=== PATIENT | female | born 1995 | race Caucasian/White ===

== ENCOUNTER 2016-08-14 18:29 | Emergency (ER) | payer MEDICAID ==
[2015-08-07 15:29] VITALS: BMI 35.3
[~2016-08-14 18:29] MED LIST: HYDROCODON-ACE1 EAC7 PO; IBUPROFEN600 MG PO
[2016-08-14 19:12] LABS: BASOPHILS 0.2 % (0.0-2.0); EOSINOPHILS 2.6 % (0-7); HEMATOCRIT 33.8 % (36.0-48.0); HEMOGLOBIN 10.7 g/dL (12-16); IMMATURE GRANULOCYTES 0.2 % (0-5); MCH 23.1 pg (26.0-34.0); MCHC 31.7 g/dL (31.0-37.0); MCV 72.8 fL (80.0-100.0); MEAN PLATELET VOLUME 9.6 fL (7.4-10.4); PLATELET COUNT 222 10x3/uL (130-400); RBC 4.64 10x6/uL (4.00-5.40); RDW 16.4 % (11.5-14.5); WBC 6.2 10x3/uL (4.8-10.8)
[2016-08-14 19:18] LABS: APPEARANCE CLEAR (CLEAR); BILIRUBIN NEGATIVE (NEGATIVE); COLOR YELLOW (YELLOW); EPITHELIAL CELLS 0-5 /hpf (0-5); GLUCOSE NEGATIVE (NEGATIVE); KETONE NEGATIVE (NEGATIVE); LEUKOCYTE ESTERASE TRACE (NEGATIVE); NITRITE NEGATIVE (NEGATIVE); PROTEIN NEGATIVE (NEGATIVE); RED CELLS - URINE 0-5 /hpf (0-5); UROBILINOGEN NORMAL (NORMAL); WHITE CELLS - URINE 25-50 /hpf (0-5)
[2016-08-14 19:19] LABS: BACTERIA MODERATE /hpf (NONE SEEN)
[2016-08-14 19:29] LABS: ALBUMIN 3.7 g/dL (3.4-5.0); ALKALINE PHOSPHATASE 63 U/L (46-116); ALT (SGPT) 22 U/L (10-68); BILIRUBIN - TOTAL 0.32 mg/dL (0.2-1.3); CALC OSMOLALITY 280 mosm/kg (275-300); CALCIUM 8.9 mg/dL (8.5-10.1); CARBON DIOXIDE 28.3 mmol/L (21.0-32.0); CHLORIDE - SERUM 107 mmol/L (98-107); CREATININE - SERUM 0.9 mg/dL (0.6-1.3); GLUCOSE 87 mg/dL (74-106); POTASSIUM - SERUM 3.9 mmol/L (3.5-5.1); PROTEIN - SERUM 7.4 g/dL (6.4-8.2); SODIUM 141 mmol/L (136-145); UREA NITROGEN 15 mg/dL (7-18); eGFR NON AFRICAN AMERICAN 85 mL/min (90-120)
[2016-08-14 19:33] LABS: HCG SERUM NEGATIVE (NEGATIVE)
== END 2016-08-14 21:30 | disposition home or self-care (01) ==
LOC: D.ER 18:29
PROVIDERS: Emergency Medicine
DX: R10.9 Unspecified abdominal pain (principal); N76.0 Acute vaginitis; D64.9 Anemia, unspecified

== ENCOUNTER 2016-10-09 23:19 | Emergency (ER) | payer MEDICAID ==
[2015-08-07 15:29] VITALS: BMI 35.3
== END 2016-10-09 23:55 | disposition left against medical advice (07) ==
LOC: D.ER 23:19
DX: O26.899 Other specified pregnancy related conditions, unspecified trimester (principal)

== ENCOUNTER 2016-10-30 10:15 | Emergency (ER) | payer MEDICAID ==
[2015-08-07 15:29] VITALS: BMI 35.3
== END 2016-10-30 13:20 | disposition left against medical advice (07) ==
LOC: D.ER 10:15
DX: O26.899 Other specified pregnancy related conditions, unspecified trimester (principal)

== ENCOUNTER 2016-11-01 17:38 | Emergency (ER) | payer MEDICAID ==
[2015-08-07 15:29] VITALS: BMI 35.3
[2016-11-01 18:23] LABS: BASOPHILS 0.3 % (0.0-2.0); EOSINOPHILS 4.5 % (0-7); HEMATOCRIT 34.8 % (36.0-48.0); HEMOGLOBIN 11.5 g/dL (12-16); IMMATURE GRANULOCYTES 0.2 % (0-5); LYMPHOCYTES 26.7 % (15-50); MCH 25.3 pg (26.0-34.0); MCV 76.5 fL (80.0-100.0); MEAN PLATELET VOLUME 9.9 fL (7.4-10.4); MONOCYTES 8.5 % (2-11); NEUTROPHILS 59.8 % (40-80); PLATELET COUNT 202 10x3/uL (130-400); RBC 4.55 10x6/uL (4.00-5.40); RDW 16.8 % (11.5-14.5); WBC 6.3 10x3/uL (4.8-10.8)
[2016-11-01 18:29] LABS: HCG SERUM POSITIVE (NEGATIVE)
[2016-11-01 18:38] LABS: APPEARANCE CLOUDY (CLEAR); BILIRUBIN NEGATIVE (NEGATIVE); COLOR YELLOW (YELLOW); GLUCOSE NEGATIVE (NEGATIVE); KETONE NEGATIVE (NEGATIVE); LEUKOCYTE ESTERASE 2+ (NEGATIVE); NITRITE NEGATIVE (NEGATIVE); PROTEIN NEGATIVE (NEGATIVE); UROBILINOGEN NORMAL (NORMAL)
[2016-11-01 18:40] LABS: BACTERIA MODERATE /hpf (NONE SEEN); MUCUS <1+ /lpf (NONE SEEN); RED CELLS - URINE NONE SEEN /hpf (0-5)
[2016-11-01 18:53] LABS: ALBUMIN 3.8 g/dL (3.4-5.0); ALKALINE PHOSPHATASE 62 U/L (46-116); ALT (SGPT) 14 U/L (10-68); BILIRUBIN - TOTAL 0.21 mg/dL (0.2-1.3); CALC OSMOLALITY 276 mosm/kg (275-300); CALCIUM 8.8 mg/dL (8.5-10.1); CARBON DIOXIDE 24.9 mmol/L (21.0-32.0); CHLORIDE - SERUM 104 mmol/L (98-107); CREATININE - SERUM 0.6 mg/dL (0.6-1.3); GLUCOSE 92 mg/dL (74-106); POTASSIUM - SERUM 3.4 mmol/L (3.5-5.1); PROTEIN - SERUM 7.2 g/dL (6.4-8.2); SODIUM 139 mmol/L (136-145); UREA NITROGEN 10 mg/dL (7-18); eGFR NON AFRICAN AMERICAN > 90 mL/min (90-120)
[2016-11-01 19:17] LABS: HCG - QUANTITATIVE (MATERNAL) 126937 mIU/mL
== END 2016-11-01 20:55 | disposition home or self-care (01) ==
LOC: D.ER 17:38
PROVIDERS: Family Medicine; Physician Assistant
DX: O26.899 Other specified pregnancy related conditions, unspecified trimester (principal); R10.9 Unspecified abdominal pain; F17.200 Nicotine dependence, unspecified, uncomplicated

== ENCOUNTER 2016-12-24 23:05 | Emergency (ER) | payer MEDICAID ==
[2015-08-07 15:29] VITALS: BMI 35.3
== END 2016-12-25 | disposition left against medical advice (07) ==
LOC: D.ER 23:05
DX: R11.2 Nausea with vomiting, unspecified (principal)

== ENCOUNTER 2017-01-18 22:55 | Outpatient (CLI) | payer MEDICAID ==
[2015-08-07 15:29] VITALS: BMI 35.3
== END 2017-01-19 00:01 | disposition home or self-care (01) ==
LOC: D.LDO 22:55 → D.LD 22:56 → D.LDO 01-19 00:01
DX: O26.852 Spotting complicating pregnancy, second trimester (principal); Z3A.21 21 weeks gestation of pregnancy

== ENCOUNTER → 2017-05-03 17:29 | Outpatient (CLI) | payer MEDICAID ==
[2015-08-07 15:29] VITALS: BMI 35.3
[~2017-05-03 17:29] MED LIST changes: +FERROUS SULFAT325 MG PO; +PRENATAL COMPLE1 TAB PO; +PROAIR HFA8.5 GM INH
[2017-05-03 18:29] LABS: APPEARANCE CLEAR (CLEAR); COLOR YELLOW (YELLOW)
[2017-05-03 18:30] LABS: BILIRUBIN NEGATIVE (NEGATIVE); GLUCOSE NEGATIVE (NEGATIVE); KETONE NEGATIVE (NEGATIVE); NITRITE NEGATIVE (NEGATIVE); PROTEIN NEGATIVE (NEGATIVE); UROBILINOGEN NORMAL (NORMAL)
== END | disposition home or self-care (01) ==
LOC: D.LDO 17:29
PROVIDERS: Obstetrics & Gynecology
DX: O26.893 Other specified pregnancy related conditions, third trimester (principal); Z3A.36 36 weeks gestation of pregnancy; R10.2 Pelvic and perineal pain; R51 Headache; R42 Dizziness and giddiness; R20.2 Paresthesia of skin

== ENCOUNTER 2017-12-12 21:21 | Emergency (ER) | payer MEDICAID ==
[2015-08-07 15:29] VITALS: BMI 35.3
== END 2017-12-12 23:45 | disposition home or self-care (01) ==
LOC: D.ER 21:21
DX: K08.89 Other specified disorders of teeth and supporting structures (principal); K04.7 Periapical abscess without sinus; F17.200 Nicotine dependence, unspecified, uncomplicated

== ENCOUNTER 2018-07-28 12:24 | Emergency (ER) | payer SELFPAY ==
[~2018-07-28] VITALS: Ht 160 cm; Wt 79.5 kg
[2018-07-28 12:36] VITALS: Ht 160 cm; Wt 79.5 kg
[2018-07-28] MEDS ORDERED: AMOXICILLIN500 M1 PO (13:13)
[2018-07-28] MEDS ORDERED: PREDNISONE20 MG PO (13:13)
[2018-07-28 13:41] VITALS: BP 100/065
== END 2018-07-28 13:42 | disposition home or self-care (01) ==
LOC: D.ER 12:24
DX: J02.9 Acute pharyngitis, unspecified (principal)

== ENCOUNTER 2018-08-02 21:37 | Emergency (ER) | payer SELFPAY ==
[~2018-08-02] VITALS: Ht 160 cm; Wt 77.3 kg
[~2018-08-02 21:37] MED LIST changes: +AMOXICILLIN500 M1 PO; +PREDNISONE20 MG PO
[2018-08-02 21:52] VITALS: Ht 160 cm; Wt 77.3 kg
[2018-08-02 22:44] LABS: APPEARANCE CLEAR (CLEAR); BASOPHILS 0.3 % (0-2); BILIRUBIN NEGATIVE (NEGATIVE); COLOR YELLOW (YELLOW); EOSINOPHILS 9.2 % (0-7); GLUCOSE NEGATIVE (NEGATIVE); HEMATOCRIT 31.7 % (36.0-48.0); HEMOGLOBIN 10.3 g/dL (12-16); IMMATURE GRANULOCYTES 0.5 % (0-5); KETONE NEGATIVE (NEGATIVE); LYMPHOCYTES 32.2 % (15-50); MCH 24.1 pg (26.0-34.0); MCHC 32.5 g/dL (31.0-37.0); MCV 74.2 fL (80.0-100.0); MEAN PLATELET VOLUME 9.9 fL (7.4-10.4); MONOCYTES 5.8 % (2-11); NITRITE NEGATIVE (NEGATIVE); PLATELET COUNT 277 10x3/uL (130-400); PROTEIN NEGATIVE (NEGATIVE); RBC 4.27 10x6/uL (4.00-5.40); RDW 14.2 % (11.5-14.5); SPECIFIC GRAVITY 1.015 (1.005-1.020); UROBILINOGEN NORMAL (NORMAL); WBC 6.4 10x3/uL (4.8-10.8)
[2018-08-02 22:51] LABS: ALKALINE PHOSPHATASE 67 U/L (46-116); ALT (SGPT) 19 U/L (10-68); CALC OSMOLALITY 283 mosm/kg (275-300); CALCIUM 8.8 mg/dL (8.5-10.1); CARBON DIOXIDE 27.8 mmol/L (21.0-32.0); CHLORIDE - SERUM 106 mmol/L (98-107); CREATININE - SERUM 0.8 mg/dL (0.6-1.3); GLUCOSE 87 mg/dL (74-106); POTASSIUM - SERUM 3.5 mmol/L (3.5-5.1); PROTEIN - SERUM 7.2 g/dL (6.4-8.2); SODIUM 143 mmol/L (136-145); UREA NITROGEN 12 mg/dL (7-18); eGFR NON AFRICAN AMERICAN > 90 mL/min (90-120)
[2018-08-02 22:53] LABS: AMYLASE - SERUM 57 U/L (25-115); LIPASE 316 U/L (73-393); TROPONIN-I < 0.017 ng/mL (0.000-0.060)
[2018-08-02 22:54] LABS: HCG SERUM NEGATIVE (NEGATIVE)
[2018-08-03] MEDS ORDERED: PREDNISONE20 MG PO (02:12)
[2018-08-03] MEDS ORDERED: TAMOXIFEN CITRA20 MG PO (02:12)
[2018-08-03 02:47] VITALS: BP 116/78
[2018-08-03 03:07] LABS: ERYTHROCYTE SEDIMENTATION RATE 32 mm/hr (0-20)
== END 2018-08-03 02:47 | disposition home or self-care (01) ==
LOC: D.ER 21:37
PROVIDERS: Family Medicine
DX: K65.4 Sclerosing mesenteritis (principal); D64.9 Anemia, unspecified; F17.200 Nicotine dependence, unspecified, uncomplicated

== ENCOUNTER 2019-01-27 14:27 | Emergency (ER) | payer MEDICAID ==
[~2019-01-27] VITALS: Ht 165.1 cm; Wt 68.2 kg
[~2019-01-27 14:27] MED LIST changes: +TAMOXIFEN CITRA20 MG PO
[2019-01-27 14:51] VITALS: Ht 165.1 cm; Wt 68.2 kg
[2019-01-27 15:22] LABS: BASOPHILS 0.2 % (0-2); EOSINOPHILS 9.7 % (0-7); HEMATOCRIT 28.2 % (36.0-48.0); LYMPHOCYTES 19.5 % (15-50); MCH 22.3 pg (26.0-34.0); MCHC 31.9 g/dL (31.0-37.0); MONOCYTES 7.1 % (2-11); NEUTROPHILS 63.5 % (40-80); PLATELET COUNT 261 10x3/uL (130-400); RBC 4.03 10x6/uL (4.00-5.40); RDW 14.5 % (11.5-14.5); WBC 6.1 10x3/uL (4.8-10.8)
[2019-01-27 15:29] LABS: ALBUMIN 3.4 g/dL (3.4-5.0); ALKALINE PHOSPHATASE 68 U/L (46-116); ALT (SGPT) 16 U/L (10-68); CALC OSMOLALITY 276 mosm/kg (275-300); CALCIUM 8.7 mg/dL (8.5-10.1); CARBON DIOXIDE 25.8 mmol/L (21.0-32.0); CHLORIDE - SERUM 107 mmol/L (98-107); CREATININE - SERUM 0.8 mg/dL (0.6-1.3); GLUCOSE 88 mg/dL (74-106); POTASSIUM - SERUM 3.8 mmol/L (3.5-5.1); PROTEIN - SERUM 6.9 g/dL (6.4-8.2); SODIUM 140 mmol/L (136-145); UREA NITROGEN 10 mg/dL (7-18); eGFR NON AFRICAN AMERICAN > 90 mL/min (90-120)
[2019-01-27 15:31] LABS: APPEARANCE CLEAR (CLEAR); BILIRUBIN NEGATIVE (NEGATIVE); COLOR YELLOW (YELLOW); GLUCOSE NEGATIVE (NEGATIVE); KETONE NEGATIVE (NEGATIVE); NITRITE NEGATIVE (NEGATIVE); PROTEIN NEGATIVE (NEGATIVE); SPECIFIC GRAVITY 1.025 (1.005-1.020); UROBILINOGEN NORMAL (NORMAL)
[2019-01-27 15:33] LABS: AMYLASE - SERUM 44 U/L (25-115); LIPASE 159 U/L (73-393); TROPONIN-I < 0.017 ng/mL (0.000-0.060)
[2019-01-27 15:36] LABS: BACTERIA MANY /hpf (NONE SEEN)
[2019-01-27 15:37] LABS: HCG URINE NEGATIVE (NEGATIVE); MUCUS <1+ /lpf (NONE SEEN)
[2019-01-27] MEDS ORDERED: OMNICEF300 MG PO (18:45)
[2019-01-27 19:05] VITALS: BP 112/77
== END 2019-01-27 19:05 | disposition home or self-care (01) ==
LOC: D.ER 14:27
PROVIDERS: Family Medicine
DX: N30.80 Other cystitis without hematuria (principal); F17.210 Nicotine dependence, cigarettes, uncomplicated

== ENCOUNTER 2019-04-27 03:19 | Emergency (ER) | payer MEDICAID ==
[~2019-04-27] VITALS: Ht 165.1 cm; Wt 79.4 kg
[~2019-04-27 03:19] MED LIST changes: +OMNICEF300 MG PO
[2019-04-27 03:23] VITALS: Ht 165.1 cm; Wt 79.4 kg
[2019-04-27] MEDS ORDERED: MEDROL DOSE PACK4 MG PO (04:18)
[2019-04-27] MEDS ORDERED: ZPAK PO (04:18)
[2019-04-27] MEDS ORDERED: ALBUTEROL SULF8.5 GM INH (04:18)
[2019-04-27 05:02] VITALS: BP 112/70
== END 2019-04-27 05:02 | disposition home or self-care (01) ==
LOC: D.ER 03:19
DX: J20.9 Acute bronchitis, unspecified (principal)

== ENCOUNTER 2019-05-09 16:00 | Emergency (ER) | payer MEDICAID ==
[~2019-05-09] VITALS: Ht 165.1 cm; Wt 79.1 kg
[~2019-05-09 16:00] MED LIST changes: +ALBUTEROL SULF8.5 GM INH; +MEDROL DOSE PACK4 MG PO; +ZPAK PO
[2019-05-09 16:40] VITALS: Ht 165.1 cm; Wt 79.1 kg
[2019-05-09 20:30] VITALS: BP 110/75
== END 2019-05-09 20:30 | disposition home or self-care (01) ==
LOC: D.ER 16:00
DX: J02.0 Streptococcal pharyngitis (principal); R51 Headache; F17.210 Nicotine dependence, cigarettes, uncomplicated

== ENCOUNTER 2019-06-24 17:22 | Emergency (ER) | payer SELFPAY ==
[~2019-06-24] VITALS: Ht 165.1 cm; Wt 82.3 kg
[2019-06-24 17:40] VITALS: BP 114/73; Ht 165.1 cm; Wt 82.3 kg
[2019-06-24 18:34] LABS: BASOPHILS 0.2 % (0-2); EOSINOPHILS 2.8 % (0-7); HEMATOCRIT 33.1 % (36.0-48.0); HEMOGLOBIN 10.4 g/dL (12-16); IMMATURE GRANULOCYTES 0.2 % (0-5); LYMPHOCYTES 23.1 % (15-50); MCH 23.3 pg (26.0-34.0); MCHC 31.4 g/dL (31.0-37.0); MCV 74.2 fL (80.0-100.0); MEAN PLATELET VOLUME 9.1 fL (7.4-10.4); MONOCYTES 7.9 % (2-11); NEUTROPHILS 65.8 % (40-80); PLATELET COUNT 231 10x3/uL (130-400); RBC 4.46 10x6/uL (4.00-5.40); RDW 17.1 % (11.5-14.5); WBC 5.5 10x3/uL (4.8-10.8)
[2019-06-24 19:04] LABS: CALC OSMOLALITY 273 mosm/kg (275-300); CALCIUM 8.4 mg/dL (8.5-10.1); CARBON DIOXIDE 25.6 mmol/L (21.0-32.0); CHLORIDE - SERUM 103 mmol/L (98-107); CREATININE - SERUM 0.5 mg/dL (0.6-1.3); GLUCOSE 87 mg/dL (74-106); SODIUM 138 mmol/L (136-145); UREA NITROGEN 10 mg/dL (7-18); eGFR NON AFRICAN AMERICAN > 90 mL/min (90-120)
[2019-06-24 19:10] LABS: ALBUMIN 3.6 g/dL (3.4-5.0); ALKALINE PHOSPHATASE 75 U/L (46-116); ALT (SGPT) 24 U/L (10-68); BILIRUBIN - TOTAL 0.18 mg/dL (0.2-1.3); PROTEIN - SERUM 7.4 g/dL (6.4-8.2)
== END 2019-06-24 19:19 | disposition left against medical advice (07) ==
LOC: D.ER 17:22
PROVIDERS: Family Medicine
DX: O26.891 Other specified pregnancy related conditions, first trimester (principal); Z3A.09 9 weeks gestation of pregnancy; M54.9 Dorsalgia, unspecified; Z53.21 Procedure and treatment not carried out due to patient leaving prior to being seen by health care provider

== ENCOUNTER 2019-07-18 03:47 | Emergency (ER) | payer SELFPAY ==
[~2019-07-18] VITALS: Ht 165.1 cm; Wt 76.4 kg
[2019-07-18 03:56] VITALS: Ht 165.1 cm; Wt 76.4 kg
[2019-07-18] MEDS ORDERED: PRENATAL VITAMIN (04:03)
[2019-07-18] MEDS ORDERED: BAYER CHEWABLE81 MG PO (04:26)
[2019-07-18 04:30] LABS: BASOPHILS 0.2 % (0-2); EOSINOPHILS 4.7 % (0-7); HEMATOCRIT 32.9 % (36.0-48.0); HEMOGLOBIN 10.6 g/dL (12-16); MCH 23.8 pg (26.0-34.0); MCHC 32.2 g/dL (31.0-37.0); MCV 73.8 fL (80.0-100.0); MEAN PLATELET VOLUME 9.3 fL (7.4-10.4); MONOCYTES 5.8 % (2-11); NEUTROPHILS 65.3 % (40-80); PLATELET COUNT 219 10x3/uL (130-400); RBC 4.46 10x6/uL (4.00-5.40); RDW 16.3 % (11.5-14.5); WBC 6.2 10x3/uL (4.8-10.8)
[2019-07-18 04:38] LABS: APPEARANCE CLEAR (CLEAR); BILIRUBIN NEGATIVE (NEGATIVE); COLOR YELLOW (YELLOW); GLUCOSE NEGATIVE (NEGATIVE); KETONE SMALL mg/dL (NEGATIVE); NITRITE NEGATIVE (NEGATIVE); PROTEIN NEGATIVE (NEGATIVE); UROBILINOGEN NORMAL (NORMAL); WHITE CELLS - URINE 0-5 /hpf (NEGATIVE)
[2019-07-18 04:52] LABS: CALC OSMOLALITY 268 mosm/kg (275-300); CARBON DIOXIDE 23.6 mmol/L (21.0-32.0); CHLORIDE - SERUM 102 mmol/L (98-107); CREATININE - SERUM 0.7 mg/dL (0.6-1.3); GLUCOSE 84 mg/dL (74-106); POTASSIUM - SERUM 3.7 mmol/L (3.5-5.1); SODIUM 135 mmol/L (136-145); UREA NITROGEN 13 mg/dL (7-18); eGFR NON AFRICAN AMERICAN > 90 mL/min (90-120)
[2019-07-18 05:09] LABS: % SATURATION 4 % (15-55); IRON 17 ug/dl (35-150); TOTAL IRON BIND CAPACITY 388 ug/dl (260-445); UNSAT IRON BIND CAPACITY 371 ug/dl (150-375)
[2019-07-18] MEDS ORDERED: FERROUS GLUCON324 MG PO (05:17)
[2019-07-18 05:20] LABS: ALBUMIN 3.5 g/dL (3.4-5.0); ALKALINE PHOSPHATASE 59 U/L (46-116); ALT (SGPT) 20 U/L (10-68); BILIRUBIN - TOTAL 0.18 mg/dL (0.2-1.3); HCG - QUANTITATIVE (MATERNAL) 97130 mIU/mL; PROTEIN - SERUM 7.6 g/dL (6.4-8.2)
[2019-07-18 08:40] VITALS: BP 106/72
== END 2019-07-18 08:41 | disposition home or self-care (01) ==
LOC: D.ER 03:47
PROVIDERS: Emergency Medicine
DX: O99.011 Anemia complicating pregnancy, first trimester (principal); Z3A.12 12 weeks gestation of pregnancy; R10.30 Lower abdominal pain, unspecified; J45.909 Unspecified asthma, uncomplicated

== ENCOUNTER 2019-08-01 17:39 | Emergency (ER) | payer SELFPAY ==
[~2019-08-01 17:39] MED LIST changes: +BAYER CHEWABLE81 MG PO; +FERROUS GLUCON324 MG PO; +PRENATAL VITAMIN
[2019-08-01 17:43] VITALS: Ht 165.1 cm
[2019-08-01 18:36] LABS: BASOPHILS 0.1 % (0-2); EOSINOPHILS 2.4 % (0-7); HEMOGLOBIN 10.8 g/dL (12-16); IMMATURE GRANULOCYTES 0.3 % (0-5); LYMPHOCYTES 10.1 % (15-50); MCH 24.8 pg (26.0-34.0); MCHC 33.8 g/dL (31.0-37.0); MCV 73.4 fL (80.0-100.0); MEAN PLATELET VOLUME 9.2 fL (7.4-10.4); MONOCYTES 6.4 % (2-11); NEUTROPHILS 80.7 % (40-80); PLATELET COUNT 198 10x3/uL (130-400); RBC 4.36 10x6/uL (4.00-5.40); RDW 15.5 % (11.5-14.5); WBC 7.2 10x3/uL (4.8-10.8)
[2019-08-01 18:44] LABS: CALC OSMOLALITY 267 mosm/kg (275-300); CARBON DIOXIDE 23.6 mmol/L (21.0-32.0); CHLORIDE - SERUM 100 mmol/L (98-107); CREATININE - SERUM 0.6 mg/dL (0.6-1.3); GLUCOSE 88 mg/dL (74-106); POTASSIUM - SERUM 3.3 mmol/L (3.5-5.1); SODIUM 135 mmol/L (136-145); UREA NITROGEN 10 mg/dL (7-18); eGFR NON AFRICAN AMERICAN > 90 mL/min (90-120)
[2019-08-01 19:12] LABS: ALBUMIN 3.2 g/dL (3.4-5.0); ALKALINE PHOSPHATASE 60 U/L (46-116); ALT (SGPT) 17 U/L (10-68); BILIRUBIN - TOTAL 0.28 mg/dL (0.2-1.3); HCG - QUANTITATIVE (MATERNAL) 79832 mIU/mL; PROTEIN - SERUM 7.5 g/dL (6.4-8.2)
[2019-08-01] MEDS ORDERED: ZOFRAN4 MG PO (19:27)
[2019-08-01 20:31] VITALS: BP 98/64
== END 2019-08-01 20:31 | disposition home or self-care (01) ==
LOC: D.ER 17:39
PROVIDERS: Emergency Medicine
DX: O26.891 Other specified pregnancy related conditions, first trimester (principal); Z3A.14 14 weeks gestation of pregnancy; W10.9XXA Fall (on) (from) unspecified stairs and steps, initial encounter

== ENCOUNTER 2019-08-05 23:51 | Emergency (ER) | payer SELFPAY ==
[~2019-08-05] VITALS: Ht 165.1 cm; Wt 79.5 kg
[~2019-08-05 23:51] MED LIST changes: +ZOFRAN4 MG PO
[2019-08-05 23:58] VITALS: BP 109/67; Ht 165.1 cm; Wt 79.5 kg
[2019-08-06] MEDS ORDERED: GUAIFENESI100 MG/5 M PO (00:14)
[2019-08-06] MEDS ORDERED: ZPAK PO (00:14)
== END 2019-08-06 00:21 | disposition home or self-care (01) ==
LOC: D.ER 23:51
DX: O26.892 Other specified pregnancy related conditions, second trimester (principal); Z3A.15 15 weeks gestation of pregnancy; J06.9 Acute upper respiratory infection, unspecified

== ENCOUNTER 2019-08-15 14:22 | Observation (INO) | payer MEDICAID ==
[~2019-08-15] VITALS: Ht 165.1 cm; Wt 81.8 kg
[~2019-08-15 14:22] MED LIST changes: +GUAIFENESI100 MG/5 M PO; -PRENATAL VITAMIN; +PRENATAL VITAMIN PO
[2019-08-15 15:32] LABS: APPEARANCE HAZY (CLEAR); COLOR YELLOW (YELLOW); NITRITE NEGATIVE (NEGATIVE); PROTEIN 2+ mg/dL (NEGATIVE); SPECIFIC GRAVITY 1.025 (1.005-1.020)
[2019-08-15 15:33] LABS: AMORPHOUS SEDIMENT <1+ /lpf (NONE SEEN); BACTERIA MODERATE /hpf (NEGATIVE); BILIRUBIN NEGATIVE (NEGATIVE); GLUCOSE NEGATIVE (NEGATIVE); GRANULAR CAST NONE SEEN /lpf (NONE SEEN); HYALINE CAST NONE SEEN /lpf (NONE SEEN); KETONE MODERATE mg/dL (NEGATIVE); MUCUS NONE SEEN /lpf (NONE SEEN); RED CELL CAST NONE SEEN /lpf (NONE SEEN); RED CELLS - URINE 0-5 /hpf (0-5); SPERMATOZOA NONE SEEN /hpf (NONE SEEN); UROBILINOGEN NORMAL (NORMAL); WAXY CAST NONE SEEN /lpf (NONE SEEN); WHITE CELLS - URINE 0-5 /hpf (NEGATIVE); YEAST NONE SEEN /hpf (NONE SEEN)
[2019-08-15 15:44] LABS: BASOPHILS 0 % (0-2); EOSINOPHILS 0 % (0-7); HEMATOCRIT 29.2 % (36.0-48.0); HEMOGLOBIN 9.8 g/dL (12-16); IMMATURE GRANULOCYTES 0.4 % (0-5); LYMPHOCYTES 8.6 % (15-50); MCH 24.9 pg (26.0-34.0); MCHC 33.6 g/dL (31.0-37.0); MCV 74.1 fL (80.0-100.0); MEAN PLATELET VOLUME 8.7 fL (7.4-10.4); MONOCYTES 6.5 % (2-11); NEUTROPHILS 84.5 % (40-80); PLATELET COUNT 163 10x3/uL (130-400); RBC 3.94 10x6/uL (4.00-5.40); WBC 2.8 10x3/uL (4.8-10.8)
--- NOTE | 2019-08-15 15:50 | NUR ---
PT REFUSED FLU SWAB. ERP INFORMED.
[2019-08-15 15:56] LABS: CALC OSMOLALITY 264 mosm/kg (275-300); CALCIUM 8.3 mg/dL (8.5-10.1); CARBON DIOXIDE 22.8 mmol/L (21.0-32.0); CHLORIDE - SERUM 100 mmol/L (98-107); CREATININE - SERUM 0.7 mg/dL (0.6-1.3); GLUCOSE 94 mg/dL (74-106); POTASSIUM - SERUM 3.5 mmol/L (3.5-5.1); SODIUM 134 mmol/L (136-145); UREA NITROGEN 5 mg/dL (7-18); eGFR NON AFRICAN AMERICAN > 90 mL/min (90-120)
[2019-08-15 16:02] LABS: ALBUMIN 3.1 g/dL (3.4-5.0); ALKALINE PHOSPHATASE 52 U/L (46-116); ALT (SGPT) 27 U/L (10-68); BILIRUBIN - TOTAL 0.14 mg/dL (0.2-1.3); PROTEIN - SERUM 6.6 g/dL (6.4-8.2)
--- NOTE | 2019-08-15 21:00 | NUR ---
REC'D PATIENT TO FLOOR. VSS. GAVE PATIENT A DRINK AND SNACK PER HER REQUEST. PLACED HAT IN PATIENT'S TOILET AND INSTRUCTED HER TO USE WHEN SHE URINATES. ALSO SET UP IV FLUIDS. PATIENT DENIES OTHER NEEDS AT THIS TIME. BED IN LOWEST POSITION AND CALL LIGHT WITHIN REACH. ENCOURAGED THE PATIENT TO CALL IF SHE HAS NEEDS. WILL CONTINUE TO MONITOR.
[2019-08-15 21:45] VITALS: BP 120/58; Ht 165.1 cm; Wt 81.8 kg
[2019-08-15] MEDS ORDERED: ALBUTEROL SULF8.5 GM INH (21:54)
[2019-08-16 00:29] VITALS: BP 112/73
--- NOTE | 2019-08-16 00:32 | NUR ---
FHT'S VIA DOPPLER 140'S-150'S
[2019-08-16 04:20] VITALS: BP 122/77
--- NOTE | 2019-08-16 04:32 | NUR ---
PATIENT REFUSED FLU SWAB
[2019-08-16 07:15] LABS: BASOPHILS 0 % (0-2); EOSINOPHILS 0 % (0-7); HEMATOCRIT 29.2 % (36.0-48.0); HEMOGLOBIN 9.6 g/dL (12-16); LYMPHOCYTES 17.1 % (15-50); MCH 24.4 pg (26.0-34.0); MCHC 32.9 g/dL (31.0-37.0); MCV 74.1 fL (80.0-100.0); MEAN PLATELET VOLUME 9.2 fL (7.4-10.4); MONOCYTES 12.4 % (2-11); NEUTROPHILS 70.5 % (40-80); PLATELET COUNT 165 10x3/uL (130-400); RBC 3.94 10x6/uL (4.00-5.40); RDW 15.1 % (11.5-14.5); WBC 2.1 10x3/uL (4.8-10.8)
--- NOTE | 2019-08-16 07:15 | NUR ---
RECIEVE REPORT. ALERT AND ORIENTED X4. RESTING IN BED. DROPLET ISO CONTINUED FOR FLU. REFUSE FLU SWAB. IV INFUSING ORDERED. DENIES ANY NEEDS AT THIS TIME. CONTINUE PLAN OF CARE AND SAFETY PRECAUTIONS.
[2019-08-16 07:47] VITALS: BP 97/55
[2019-08-16] MEDS ORDERED: BUTALB-APAP-CA1 EACH PO (12:24)
[2019-08-16] MEDS ORDERED: TAMIFLU75 MG PO (12:25)
--- NOTE | 2019-08-16 13:30 | NUR ---
ALERT AND ORIENTED X4. SITTING UP IN BED. WRITTEN PRESCRIPTIONS PROVIDED. DISCHARGE INSTRUCTIONS GIVEN VERBALLY AND WRITTEN. DISCHARGE PAPERS SIGNED ON CHART. DC LT AC IV TIP INTACT. ESCORT TO RIDE VIA WHEELCHAIR. REMAINS FREE FROM INJURY.
== END 2019-08-16 13:33 | disposition home or self-care (01) ==
LOC: D.ER 14:22 → D.M3 18:49 → OBSVTIME 18:49 → D.M3 18:49
PROVIDERS: Emergency Medicine; ADMIT Obstetrics & Gynecology; ATTEND Obstetrics & Gynecology
DX: O98.812 Other maternal infectious and parasitic diseases complicating pregnancy, second trimester (principal); Z3A.16 16 weeks gestation of pregnancy; J11.1 Influenza due to unidentified influenza virus with other respiratory manifestations; D72.819 Decreased white blood cell count, unspecified

== ENCOUNTER 2019-08-23 20:58 | Emergency (ER) | payer SELFPAY ==
[~2019-08-23] VITALS: Ht 165.1 cm; Wt 81.6 kg
[~2019-08-23 20:58] MED LIST changes: +BUTALB-APAP-CA1 EACH PO; +TAMIFLU75 MG PO
[2019-08-23 21:09] VITALS: Ht 165.1 cm; Wt 81.6 kg
[2019-08-23 21:26] LABS: APPEARANCE CLEAR (CLEAR); BILIRUBIN NEGATIVE (NEGATIVE); COLOR YELLOW (YELLOW); GLUCOSE NEGATIVE (NEGATIVE); KETONE MODERATE mg/dL (NEGATIVE); NITRITE NEGATIVE (NEGATIVE); PROTEIN NEGATIVE (NEGATIVE); UROBILINOGEN NORMAL (NORMAL)
[2019-08-23 21:28] LABS: BACTERIA FEW /hpf (NEGATIVE); EPITHELIAL CELLS 0-5 /hpf (0-5); HCG URINE POSITIVE (NEGATIVE); RED CELLS - URINE 0-5 /hpf (0-5); WHITE CELLS - URINE 0-5 /hpf (NEGATIVE)
[2019-08-23 21:57] LABS: BASOPHILS 0 % (0-2); EOSINOPHILS 2.3 % (0-7); HEMATOCRIT 31.2 % (36.0-48.0); HEMOGLOBIN 10.4 g/dL (12-16); IMMATURE GRANULOCYTES 0.2 % (0-5); LYMPHOCYTES 14.6 % (15-50); MCH 24.7 pg (26.0-34.0); MCHC 33.3 g/dL (31.0-37.0); MCV 74.1 fL (80.0-100.0); MEAN PLATELET VOLUME 9.9 fL (7.4-10.4); MONOCYTES 6.4 % (2-11); NEUTROPHILS 76.5 % (40-80); PLATELET COUNT 156 10x3/uL (130-400); RBC 4.21 10x6/uL (4.00-5.40); RDW 14.9 % (11.5-14.5); WBC 6.6 10x3/uL (4.8-10.8)
[2019-08-23 22:01] LABS: CALC OSMOLALITY 279 mosm/kg (275-300); CALCIUM 8.3 mg/dL (8.5-10.1); CARBON DIOXIDE 24.9 mmol/L (21.0-32.0); CHLORIDE - SERUM 106 mmol/L (98-107); CREATININE - SERUM 0.6 mg/dL (0.6-1.3); GLUCOSE 78 mg/dL (74-106); POTASSIUM - SERUM 3.7 mmol/L (3.5-5.1); SODIUM 142 mmol/L (136-145); UREA NITROGEN 8 mg/dL (7-18); eGFR NON AFRICAN AMERICAN > 90 mL/min (90-120)
[2019-08-23 22:10] LABS: UDS - AMPHET NEGATIVE QUAL (NEGATIVE); UDS - BARB NEGATIVE QUAL (NEGATIVE); UDS - BENZO NEGATIVE QUAL (NEGATIVE); UDS - COCAINE NEGATIVE QUAL (NEGATIVE); UDS - OPIATE NEGATIVE QUAL (NEGATIVE); UDS - PCP NEGATIVE QUAL (NEGATIVE); UDS - THC NEGATIVE QUAL (NEGATIVE)
[2019-08-23 22:36] LABS: ALBUMIN 2.9 g/dL (3.4-5.0); ALKALINE PHOSPHATASE 50 U/L (46-116); ALT (SGPT) 24 U/L (10-68); AMYLASE - SERUM 59 U/L (25-115); BILIRUBIN - TOTAL 0.24 mg/dL (0.2-1.3); HCG - QUANTITATIVE (MATERNAL) 26810 mIU/mL; LIPASE 209 U/L (73-393); TROPONIN-I < 0.017 ng/mL (0.000-0.060)
[2019-08-23 23:00] VITALS: BP 100/65
== END 2019-08-23 23:00 | disposition home or self-care (01) ==
LOC: D.ER 20:58
PROVIDERS: Family Medicine
DX: O26.892 Other specified pregnancy related conditions, second trimester (principal); Z3A.17 17 weeks gestation of pregnancy; R19.7 Diarrhea, unspecified; J45.909 Unspecified asthma, uncomplicated; Z72.0 Tobacco use

== ENCOUNTER 2019-10-18 22:39 | Outpatient (CLI) | payer SELFPAY ==
[2019-10-18] MEDS ORDERED: PHENERGAN25 M1 PO (23:05)
[2019-10-18 23:31] LABS: BILIRUBIN NEGATIVE (NEGATIVE); GLUCOSE NEGATIVE (NEGATIVE); KETONE NEGATIVE (NEGATIVE); NITRITE NEGATIVE (NEGATIVE); UROBILINOGEN NORMAL (NORMAL)
[2019-10-18 23:34] LABS: BACTERIA FEW /hpf (NEGATIVE); EPITHELIAL CELLS 0-5 /hpf (0-5); RED CELLS - URINE RARE /hpf (0-5); UDS - AMPHET NEGATIVE QUAL (NEGATIVE); UDS - BARB NEGATIVE QUAL (NEGATIVE); UDS - BENZO NEGATIVE QUAL (NEGATIVE); UDS - COCAINE NEGATIVE QUAL (NEGATIVE); UDS - OPIATE NEGATIVE QUAL (NEGATIVE); UDS - PCP NEGATIVE QUAL (NEGATIVE); UDS - THC NEGATIVE QUAL (NEGATIVE); WHITE CELLS - URINE 0-5 /hpf (NEGATIVE)
== END 2019-10-19 00:05 | disposition home or self-care (01) ==
LOC: D.LDO 22:39 → D.LD 22:41 → D.LDO 10-19 00:05
PROVIDERS: ATTEND Student in an Organized Health Care Education/Training Program
DX: O26.892 Other specified pregnancy related conditions, second trimester (principal); Z3A.25 25 weeks gestation of pregnancy; M54.9 Dorsalgia, unspecified

== ENCOUNTER 2019-11-01 15:57 | Outpatient (CLI) | payer MEDICAID ==
[~2019-11-01 15:57] MED LIST changes: +PHENERGAN25 M1 PO
[2019-11-01 16:51] LABS: BILIRUBIN NEGATIVE (NEGATIVE); GLUCOSE NEGATIVE (NEGATIVE); KETONE NEGATIVE (NEGATIVE); NITRITE NEGATIVE (NEGATIVE); SPECIFIC GRAVITY 1.005 (1.005-1.020); UROBILINOGEN NORMAL (NORMAL)
[2019-11-01 17:05] LABS: UDS - AMPHET NEGATIVE QUAL (NEGATIVE); UDS - BARB NEGATIVE QUAL (NEGATIVE); UDS - BENZO NEGATIVE QUAL (NEGATIVE); UDS - COCAINE NEGATIVE QUAL (NEGATIVE); UDS - OPIATE NEGATIVE QUAL (NEGATIVE); UDS - PCP NEGATIVE QUAL (NEGATIVE); UDS - THC NEGATIVE QUAL (NEGATIVE)
[2019-11-01 17:34] LABS: BASOPHILS 0.1 % (0-2); EOSINOPHILS 1.5 % (0-7); HEMATOCRIT 30.8 % (36.0-48.0); HEMOGLOBIN 9.7 g/dL (12-16); IMMATURE GRANULOCYTES 0.2 % (0-5); LYMPHOCYTES 17.4 % (15-50); MCH 25.1 pg (26.0-34.0); MCHC 31.5 g/dL (31.0-37.0); MCV 79.8 fL (80.0-100.0); MEAN PLATELET VOLUME 9.5 fL (7.4-10.4); MONOCYTES 5.3 % (2-11); NEUTROPHILS 75.5 % (40-80); RBC 3.86 10x6/uL (4.00-5.40); RDW 14.6 % (11.5-14.5); WBC 8.7 10x3/uL (4.8-10.8)
[2019-11-01 17:36] LABS: PLATELET COUNT 194 10x3/uL (130-400)
== END 2019-11-01 20:05 ==
LOC: D.LDO 15:57
PROVIDERS: ATTEND Student in an Organized Health Care Education/Training Program
DX: O36.8120 Decreased fetal movements, second trimester, not applicable or unspecified (principal); Z3A.27 27 weeks gestation of pregnancy

== ENCOUNTER 2019-12-22 20:50 | Emergency (ER) | payer MEDICAID ==
[~2019-12-22] VITALS: Ht 165.1 cm; Wt 84.1 kg
[2019-12-22 21:11] VITALS: BP 109/60; Ht 165.1 cm; Wt 84.1 kg
[2019-12-22] MEDS ORDERED: ZOFRAN4 MG PO (21:14)
== END 2019-12-22 21:50 | disposition left against medical advice (07) ==
LOC: D.ER 20:50
DX: K08.89 Other specified disorders of teeth and supporting structures (principal)

== ENCOUNTER 2020-01-17 00:40 | Inpatient (IN) | payer MEDICAID ==
[~2020-01-17] VITALS: Ht 165.1 cm; Wt 90.7 kg
[2020-01-17] MEDS ORDERED: PROVENTIL/2.5 MG/3 M INH (01:37)
[2020-01-17 01:38] VITALS: BP 114/73; Ht 165.1 cm; Wt 90.7 kg
[2020-01-17 02:06] LABS: HEMOGLOBIN 9.1 g/dL (12-16); MCH 23.7 pg (26.0-34.0); MCHC 31.4 g/dL (31.0-37.0); MCV 75.5 fL (80.0-100.0); MEAN PLATELET VOLUME 9.8 fL (7.4-10.4); RBC 3.84 10x6/uL (4.00-5.40); RDW 14.3 % (11.5-14.5); WBC 6.8 10x3/uL (4.8-10.8)
[2020-01-17 02:15] LABS: BILIRUBIN NEGATIVE (NEGATIVE); GLUCOSE NEGATIVE (NEGATIVE); KETONE NEGATIVE (NEGATIVE); NITRITE NEGATIVE (NEGATIVE); SPECIFIC GRAVITY 1.015 (1.005-1.020); UROBILINOGEN NORMAL (NORMAL)
[2020-01-17 02:17] LABS: UDS - AMPHET NEGATIVE QUAL (NEGATIVE); UDS - BARB NEGATIVE QUAL (NEGATIVE); UDS - BENZO NEGATIVE QUAL (NEGATIVE); UDS - COCAINE NEGATIVE QUAL (NEGATIVE); UDS - OPIATE NEGATIVE QUAL (NEGATIVE); UDS - PCP NEGATIVE QUAL (NEGATIVE); UDS - THC NEGATIVE QUAL (NEGATIVE)
--- NOTE | 2020-01-17 05:34 | NUR ---
rec'd pt back from recovery post c-sectiom.
[2020-01-17 05:39] VITALS: BP 123/81
[2020-01-17 07:24] VITALS: BP 108/69
--- NOTE | 2020-01-17 09:25 | NUR ---
SITTING UP IN BED. EXPECTING TO COME TO ROOM AT ANYTME. REQUEST MORE WATER AND SODA. SAYS HER PAIN IS 6/10, ENCOURAGED TO PUSH VACUUM REPAIRER CONTROLLER NEEDED. PUSHED AT THIS TIME. ALSO ENCOURAGED TO LAY DOWN AND REST. NO ACUTE DISTRESS NOTED. WILL GIVE TORADOL WHEN IT CAN BE GIVEN TO HELP. VERBALIZED UNDERSTANDING. DAMON DRAINING, IV PATENT. VISITOR IN ROOM. ICE PACK ON INCISION. NO ADDITIONAL REQUESTS. CALL LIGHT IN REACH.
--- NOTE | 2020-01-17 10:12 | NUR ---
SITTING UP IN BED, TO ROOM. NO REQUESTS. PLANS TO . DECLINED NICODERM PATCH.
[2020-01-17 10:19] LABS: BASOPHILS 0.1 % (0-2); EOSINOPHILS 0.7 % (0-7); HEMATOCRIT 30.9 % (36.0-48.0); HEMOGLOBIN 9.8 g/dL (12-16); IMMATURE GRANULOCYTES 0.3 % (0-5); LYMPHOCYTES 20.2 % (15-50); MCH 24.1 pg (26.0-34.0); MCHC 31.7 g/dL (31.0-37.0); MCV 75.9 fL (80.0-100.0); MONOCYTES 8.4 % (2-11); NEUTROPHILS 70.3 % (40-80); RBC 4.07 10x6/uL (4.00-5.40); RDW 14.4 % (11.5-14.5); WBC 7.6 10x3/uL (4.8-10.8)
[2020-01-17 10:42] LABS: PLATELET COUNT 126 10x3/uL (130-400)
[2020-01-17 11:10] VITALS: BP 104/60
--- NOTE | 2020-01-17 11:10 | NUR ---
SITTING UP IN BED TILTED TO RIGHT SIDE WITH INFANT IN ARMS. ABLE TO MOVE SELF IN BED WITHOUT DIFFICULTY. SAYS SHE BREASTFEED INFANT ON BOTH SIDES WITHOUT PROBLEMS. REMINDED NOT TO FALL ASLEEP WITH IN BED. VERBALIZED UNDERSTANDING. SAYS SHE HAS NOT USED HER CENTRIFUGAL DRIER OPERATOR SHE WANTS TO HOLD WITHOUT FALLING ASLEEP. INSTRUCTED TO CALL IF NEEDING ASSISTANCE PLACING INFANT BACK IN CRIB. U/2 FIRM, RUBRA SMALL, PHUONG-PAD X 1 REMOVED, TWO CLEAN PADS REPLACED. OUTPUT 150 ML CLEAR URINE. NO REQUESTS. WILL GIVE TORADOL AT 1200. SIDERAILS UP X 2, CALL LIGHT IN REACH.
--- NOTE | 2020-01-17 11:41 | NUR ---
VERBAL AND WRITTEN INFORMATION WAS GIVEN ON THE EFFECTS OF SMOKING, ALCOHOL AND MEDICINES ON . TO INCLUDE RECOMMENDATIONS TO AVOID AND/OR TIMING OF EVENTS WITH TO DECREASE EXPOSURE TO .
--- NOTE | 2020-01-17 12:07 | NUR ---
SITTING UP IN BED. BACK IN NURSERY FOR TEMPERATURE MONITORING. TORADOL 30 MG GIVEN IVP FOR 5/10 INCISIONAL SHARP ACHING PAIN. SAYS SHE IS DOING OK AND HAS NOT BEEN USING AUTOMOBILE MECHANIC APPRENTICE CONTROLLER MUCH "IT MAKES ME FEEL LIKE A ZOMBIE". DESIRES TO STAY AWAKE. SAYS 5 IS A LIVEABLE NUMBER FOR HER. ICE PACK ON INCISION. CLEAR LIQUID DIET AT BEDSIDE. VISITOR X 1 IN ROOM. SIDE RAILS UP X 2, CALL LIGHT IN REACH.
--- NOTE | 2020-01-17 13:07 | NUR ---
TALKED TO DR WEINSTEIN REGARDING PTS DESIRE TO GET OOB THIS AFTERNOON. ASKED MD IF PT CAN BE NORMALIZED AT 12 HOURS POST OP. ORDERS RECEIVED. PER MD, PT NOT TO LEAVE L&D TO GO OUTSIDE AND SMOKE.
--- NOTE | 2020-01-17 13:26 | NUR ---
H&H RESULTS WERE ALSO GIVEN TO DR WEINSTEIN WHEN LAST TALKED TO MD. PT NOTIFIED OF PLAN OF CARE IF SHE STILL WANTS TO "NORMALIZE" AT 1600. ALSO INFORMED SHE WILL NOT BE ABLE TO LEAVE THE UNIT TO SMOKE. SAYS SHE WAS NOT PLANNING TO. KEY ATTENDANT VISITED. SIDE RAILS UP X 2, CALL LIGHT IN REACH. HAS BEEN USING INCENTIVE SPIROMETER.
--- NOTE | 2020-01-17 14:15 | NUR ---
SITTING UP IN BED HOLDING AND GETTING READY TO BREASTFEED. SAYS HER PAIN IS MUCH BETTER. 10/12. SAYS SHE HAS NOT USED MANUFACTURING CHIEF ENGINEER FOR ABOUT AN HOUR "IT MAKES ME DROWSY. I WANT TO STAY AWAKE TO SPEND TIME WITH MY BABY" SIDE RAILS UP X 2 CALL IN REACH.
--- NOTE | 2020-01-17 15:43 | NUR ---
SITTING UP IN BED WITH INFANT IN ARMS. FRESH WATER AND SODA GIVEN PER PT REQUEST. STILL DESIRES IV AND DAMON OUT AT 1600 AND START PO MEDS. TO CALL IF ANYTHING IS NEEDED.
--- NOTE | 2020-01-17 16:26 | NUR ---
MOTRIN 600 MG GIVEN PO AFTER DISCUSSING PAIN RELIEF OPTIONS SINCE DILAUDID CENTRAL OFFICE INSTALLER IS BEING DC'D AT THIS TIME. OPTED FOR MOTRIN, WILL ASK FOR NORCO IF NEEDED. DAMON DC'D WITHOUT DIFFICULTY. 200 ML URINE EMPTIED. SALINE LOCK LEFT HAND FLUSHED WITH SALINE. SALINE LOCK PRESENT IN RIGHT WRIST. AMBULATED TO NURSERY AND BACK WITHOUT DIFFICULTY. COMPLETE LINEN CHANGE DONE. PLANS TO SIT ON EDGE OF BED TO EAT DINNER. [place] HAT IN TOILET, EXPLAINED TO PATIENT THAT WILL NEED TO MEASURE URINE NEXT TWO VOIDS. VERBALIZED UNDERSTANDING, NO BLOOD WAS NOTED ON CURRENT PHUONG-PADS. PHUONG-PANTS AND TWO PADS PLACED PRIOR TO AMBULATION. VISITOR X 1 IN ROOM. IN NURSERY. REMINDED OF VISITATION POLICY AND NOT TO AMBULATE OFF L&D. TO CALL IF NEEDING ANYTHING. IF FEELING LIGHTHEADED OR DIZZY, CALL FOR HELP. VERBALIZED UNDERSTANDING.
--- NOTE | 2020-01-17 17:38 | NUR ---
SITTING UP EATING DINNER. WILL GET VS WHEN FINISHED EATING. NO DISTRESS NOTED.
[2020-01-17 18:23] VITALS: BP 122/70
--- NOTE | 2020-01-17 18:26 | NUR ---
SITTING UP IN BED . 5-6/10 INCISIONAL BURNING. DISCUSSED PAIN MANAGEMENT OPTIONS. REQUESTED NORCO. NORCO 10 MG GIVEN PO FOR RELIEF. DENIES NEEDING ANYTHING ELSE. SIDERAILS UP X 2, CALL LIGHT IN REACH. HAS BEEN USING INCENTIVE SPIROMETER. SCD'S OFF AT CURRENT TIME, WILL REPLACE WHEN IN THE BED FOR THE NIGHT.
--- NOTE | 2020-01-17 18:59 | NUR ---
THIS RN AND Megan JEANRN TO BEDSIDE FOR BEDSIDE SHIFT REPORT. REC'D PT AA& O X4 SITTING UP IN BED W/BABY TO BREAST. PAIN AND NEEDS ASSESSED. PT RATES PAIN 3-4/10. REQUEST A SANDWICH TRAY TO EAT. SANDWICH TRAY SERVED. PT'S BEDSIDE TABLE TO PT'S SIDE. PT PLANS TO CONTINUE TO NURSE AT [facility]. WILL RETURN TO PERFORM SHIFT ASSESSMENT AFTER PT HAS HAD TIME TO NURSE. PT REPORTS 1ST VOID. APPROX 200ML CLEAR YELLOW URINE NOTED IN NUNS CAP.GOALS PROVIDED.PT AGREEABLE. BED LOW, SIDE RAILS UP X 2. CALL LIGHT AND PHONE AT PT'S SIDE.
--- NOTE | 2020-01-17 20:00 | NUR ---
THIS RN TO BEDSIDE FOR SHIFT ASSESSMENT. PT SITTING UP IN BED TENDING TO BABY. PAIN ASSESSED. PT RATES 4/10. SHIFT ASSESSMENT COMPLETED. SEE FLOWSHEET. SCD WRAPS CURRENTLY OFF FOR PT'S COMFORT. PT EDUCATED THAT SCD WRAPS MUST BE PLACED BACK ON WHEN SHE GETS READY TO SLEEP TONIGHT. PT AGREEABLE. OFFER MADE TO D/C ONE IV SITE. PT REQUEST RT WRIST SITE BE D/C/'D IT IS PAINFUL. LEFT HAND SALINE LOCK FLUSHED. SITE WNL. FLUSHES WELL. SITE LEFT. RT SALINE LOCK DC'D INTACT. BANDAID PLACED OVERSITE. BRUISING NOTED. CONTINUED POC DISCUSSED W/PT. PT VERBALIZES UNDERSTANDING AND AGREEABLE. PT PERFORMS I.S. X 5 W/GOOD EFFORT. ABLE TO PULL 2000. COUGHS X 3 WITH GOOD EFFORT. TRASH REMOVED FROM PT'S ROOM.
[2020-01-17 20:04] VITALS: BP 102/68
--- NOTE | 2020-01-17 21:00 | NUR ---
ROUNDS MADE. PT CONTINUES TO SIT UP IN BED. NOW EATING AND VISITING W/SISTER. DENIES NEEDS. REPORTS SHE PLANS TO GET UP TO AMBULATE IN HALLS NOW. PT OOB W/OUT ASSISTANCE. AMBULATES TO BR. VOIDS APPROX 250ML W/OUT DIFFICULTY. SCANT TO SMALL LOCHIA NOTED ON PERIPAD. PT AND SISTER TO VILA PUSHING BABY IN OPEN CRIB. [id number], TO NURSERY DOOR AND RETURNS TO ROOM.
--- NOTE | 2020-01-17 22:00 | NUR ---
ROUNDS MADE. PT SITTING UP IN BED VISITING W/SISTER. PP TREAT BOX PROVIDED. PT DENIES NEEDS AT THIS TIME. REPORTS PAIN 12/12. PT INFORMED THAT SHE MAY HAVE BOTH MOTRIN AND NORCO AT 2230. PT AGREEBLE TO WAITING. BED IN LOW POSITION. SIDE RAILS UP X . CALL LIGHT AND PHONE AT PT'S BEDSIDE.
--- NOTE | 2020-01-17 22:25 | NUR ---
THIS RN TO BEDSIDE FOR PAIN MEDICATION ADMIN. PT SITTING UP IN BED TENDING TO BABY. PAIN ASSESSED. PT REPORTS ABD CRAMPING AND PRESSURE PAIN AT INCISION SITE. MOTRIN 600MG AND NORCO 10/325MG 1 TAB GIVEN. SNACKS OFFERED. PT ACCEPTS. 1 CUP SHERT AND 1 CUP CHOCOLATE PUDDING SERVED. PT DENIES FURTHER NEEDS. BED LOW, SIDE RAILS UP X 2. CALL LIGHT AT PT'S SIDE.
--- NOTE | 2020-01-17 23:15 | NUR ---
THIS RN TO BEDSIDE FOR PAIN REASSESSMENT. PT CURRENTLY SITTING UP IN BED FINISHING EATING SHERBERT. PT REPORTS ABD/INCISIONAL IS BETTER, BUT NOW HAS A HEADACHE THAT SHE RATES 3/10, WHILE AT BEDSIDE. PT OOB W/OUT ASSISTANCE. AMBULATORY TO BR. ABLE TO VOID APPROX 100ML. PT RETURNS TO BED. RECLINES HOB AND REPORTSS HE PLANS TO REST NOW. SCD WRAPS PLACED BACK ON PT'S LE BILATERALLY. CONNECTED TO PUMP. PUMP IS ON AND FUNCTIONING, PT DENUES NEEDS. BED LOW, SIDE RAILS UP X 2. CALL LIGHT AND PHONE T PT' SIDE.
--- NOTE | 2020-01-18 00:37 | NUR ---
ROUNDS MADE. PT AWAKE, APPEARS DROWZY. HOB AT 70 DEGREES. PT QUESTIONED IF SHE WAS ABLE TO FALL ASLEEP. PT REPORTS SHE DID FALL ASLEEP AND HAS JUST NOW WAKENED. PT DENIES NEEDS. NO COMPLAINTS.
--- NOTE | 2020-01-18 02:43 | NUR ---
to the bedside to assist up to br, scd's removed, assisted w/ ambulation, steady gait, denies light headedness, voided qs, returned to bed, scd's reapplied, placed in arms, medicated for pain per orders, cola given per request. no other needs voiced
--- NOTE | 2020-01-18 03:27 | NUR ---
up ambulating in pillai pushing in crib, friend at side. no new needs voiced.
--- NOTE | 2020-01-18 05:00 | NUR ---
ROUNDS MADE. PT SITTING UP IN BED VISITING W/SISTER. PAIN AND NEEDS ASSESSED. PT DENIES NEEDS. NO REPORTS OF PAIN.
[2020-01-18 07:24] LABS: BASOPHILS 0 % (0-2); EOSINOPHILS 1.3 % (0-7); HEMATOCRIT 25.4 % (36.0-48.0); IMMATURE GRANULOCYTES 0.3 % (0-5); MCH 23.4 pg (26.0-34.0); MCHC 30.7 g/dL (31.0-37.0); MEAN PLATELET VOLUME 9.6 fL (7.4-10.4); MONOCYTES 6.8 % (2-11); NEUTROPHILS 71.6 % (40-80); RBC 3.34 10x6/uL (4.00-5.40); RDW 14.6 % (11.5-14.5); WBC 7.5 10x3/uL (4.8-10.8)
[2020-01-18 07:26] LABS: HEMOGLOBIN 7.8 g/dL (12-16); PLATELET COUNT 154 10x3/uL (130-400)
[2020-01-18 08:00] VITALS: BP 109/55
--- NOTE | 2020-01-18 08:00 | NUR ---
SITTING UP IN BED EATING BREAKFAST. ASSESSMENT DONE. CO ITCHING AND STATES SHE WOULD LIKE BENADRYL- INFORMED THAT WILL CALL MD AFTER SHOWER IF CONT TO HAVE ITCHING. NO RASH NOTED ON ABD AT AREA THAT IS SCRATCHING.
--- NOTE | 2020-01-18 09:00 | NUR ---
up to shower- tolerated well. instructed on care of incision. linens changed.
--- NOTE | 2020-01-18 09:30 | NUR ---
ambulating in hallway- tolerating well.
--- NOTE | 2020-01-18 09:46 | NUR ---
rings call light- requesting pain medication. co pain in lower back and at incision- med given.
--- NOTE | 2020-01-18 10:23 | NUR ---
REPORT RECEIVED FROM DELL RN TO ASSUME CARE OF PT AT 1015. THIS RN TO ROOM TO FOR PT CHECK. PT SITTING UP IN BED, AAOx3, HOLDING INFANT IN LAP ON PILLOW. PT DENIES PAIN OR ANY NEEDS AT THIS TIME. PT INSTRUCTED TO CALL FOR ANY NEEDS OR FOR ANY ASSIST WHEN UP OOB, ESPECIALLY IF SHE FEELS DIZZY OR LIGHTHEADED. UNDERSTANDING VERBALIZED. SRUx2, CL IN REACH. VISITOR AWAKE ON BEDSIDE COUCH. WILL CONT TO MONITOR.
[2020-01-18 12:14] VITALS: BP 104/61
--- NOTE | 2020-01-18 12:14 | NUR ---
THIS RN TO ROOM FOR PT CHECK. PT SITTING UP IN BED, AWAKE, SWADDLING . PT RATES PAIN APPROX 5/10 AT INCISION AND ABD CRAMPING. PT ADMIN PRN MOTRIN ORDERED, SEE EMAR FOR DOC. MED TIMES UPDATED ON WHITE BOARD. PT ENCOURAGED ON EMPTYING BLADDER, INCENTIVE SPIROMETER, AND AMBULATING. PT STATES SHE WILL GET UP TO BR TO VOID AND AMBULATE SHORTLY. FRESH ICE WATER GIVEN. PT DENIES FURTHER NEEDS AT THIS TIME. SRUx2, CL IN REACH. WILL CONT TO MONITOR.
--- NOTE | 2020-01-18 13:30 | NUR ---
PT UP AMBULATING IN HALLS WHILE IN NURSERY FOR VS. PT STATES SHE WILL BE READY FOR HER NORCO WHEN SHE GETS BACK TO ROOM. DENIES FEELING DIZZY FOR ANY NEED FOR ASSIST.
--- NOTE | 2020-01-18 13:36 | NUR ---
PT BACK TO BED, STEADY GAIT, NO ASSIST NEEDED. PT C/O PAIN RATED 7/10 AT INCISION AFTER WALKING, NORCO ADMIN ORDERED, SEE EMAR FOR DOC. FRESH ICE WATER GIVEN. LEFT HAND PIV NOTED TO BE HANGING LOOSE WITH IV CATH PARTIALLY OUT. IV REMOVED AND BANDAID APPLIED. PT DENIES FURTHER NEEDS AT THIS TIME. TALKING WITH NURSERY NURSE ABOUT INFANT CARE. SRUx2, CL IN REACH. WILL CONT TO MONITOR.
--- NOTE | 2020-01-18 15:24 | NUR ---
THIS RN TO ROOM FOR PT CHECK. PT SITTING UP IN BED, HOLDING . PT STATES PAIN IS BETTER AFTER PAIN MED, RATES PAIN 3/10. PT DENIES NEEDS. SRUx2, CL IN REACH. WILL CONT TO MONITOR.
--- NOTE | 2020-01-18 18:15 | NUR ---
THIS RN TO ROOM FOR PT CHECK. PT SITTING UP IN BED, . PT RATES PAIN / BUT STATES SHE DOESN'T WANT NORCO NOW IT MAKES HER DROWSY, JUST WANTS IBUPROFEN NOW AND MAY TAKE NORCO CLOSER TO BEDTIME. IBUPROFEN ADMIN ORDERED, SEE EMAR FOR DOC. MED TIMES UPDATED ON WHITE BOARD. PT ALSO C/O GAS PAINS, STATES SHE IS PASSING MORE GAS BUT IT IS CAUSING HER STOMACH DISCOMFORT. PT ADMIN SIMETHICONE FOR GAS PAIN, SEE EMAR. PT DENIES FURTHER NEEDS AT THIS TIME. SRUx2, CL IN REACH. WILL CONT TO MONITOR.
--- NOTE | 2020-01-18 19:34 | NUR ---
PT REC'D IN BED AT THIS TIME. INFANT AT THIS TIME. PT REQUESTING SOMETHING TO DRINK AT THIS TIME. NO DISTRESS NOTED. Dimas ERICKSON RN
--- NOTE | 2020-01-18 20:34 | NUR ---
PT REC'D UP IN HALLWAY. PT AMBULATING IN VILA WITHOUT DISTRESS NOTED. Dimas ERICKSON RN
[2020-01-18 21:33] VITALS: BP 112/60
--- NOTE | 2020-01-18 21:34 | NUR ---
ASSESSEMNT COMPLETED PER [employer]. SEE FLOWSHEET. FUNDUS FIRM AND U/2. BEAR INTACT WITH MINIMAL DRAINAGE NOTED. NO S/S OF INFECTION NOTED. SIDERAIL UP FOR SAFETY. CALL LIGHT IN PT REACH. Dimas ERICKSON RN
--- NOTE | 2020-01-18 22:35 | NUR ---
pt rec'd in bed at this time. states that pain is a 4/10 at this time. pt instructed on proper latch and allowing space for to breathe while at this time. understanding verbalized. jsoe narayan rn
--- NOTE | 2020-01-19 00:48 | NUR ---
VSS. PT STATES PAIN OF 5/10 AT THIS TIME. SEE MAR FOR ADMINISTRATION. Dimas ERICKSON RN
--- NOTE | 2020-01-19 01:42 | NUR ---
PT MEDICATED FOR PAIN LEVEL OF 5/10. PT STATES NO RELIEF WITH MOTRIN. WILL MONITOR. Dimas ERICKSON RN
--- NOTE | 2020-01-19 02:35 | NUR ---
pt rec'd in bed at this time. states painis now a 05/05. she states that she feels pain and pressure when voiding and is unable to control urine. jose narayan rn
--- NOTE | 2020-01-19 03:15 | NUR ---
pt given gaymar and provided witha breast pump at this time. jose narayan rn
--- NOTE | 2020-01-19 04:30 | NUR ---
PT STATES THAT HEATING PAD HELPED PAIN. NO DISTRESS NOTED. Dimas ERICKSON RN
[2020-01-19 05:41] VITALS: BP 115/59
[2020-01-19 06:09] LABS: RAPID PLASMA REAGIN Non Reactive (Non Reactive)
--- NOTE | 2020-01-19 06:31 | NUR ---
PT MEDICATED FOR PAIN LEVEL OF 5/10. WILL CONTINUE TO MONITOR. Dimas ERICKSON RN
--- NOTE | 2020-01-19 07:45 | NUR ---
AM ASSESSMENT COMPLETED CHARTED ON FLOWSHEET. FUNDUS FIRM AT U/U WITH SCANT BLEEDING TO PHUONG PAD AND SHE DENIES CLOTS WITH VOIDS, SHE DOES COMPLAIN OF PAIN PRIOR TO VOIDING AND HAS SPOKEN TO DR WEINSTEIN ABOUT THIS WHEN HE ROUNDED THIS AM. BIKINI INCISION CLEAN AND DRY WITH BEAR IN PLACE. PT HAS NOTICABLE SWELLING TO LEFT SIDE OF FACE AT HER JAW LINE, PER DR WEINSTEIN PT HAS SPOKEN TO HER DENIST ABOUT TREATMENT. RATES PAIN AT 4/10 AND REQUEST MOTRIN IF POSSIBLE. NURSERY NURSE BRINGS INFANT IN BY CRIB FOR FEEDING.
--- NOTE | 2020-01-19 07:49 | NUR ---
MOTRIN 600MG GIVEN SCANNED TO EMAR. PT DENIES ANY OTHER NEEDS AT THIS TIME.
--- NOTE | 2020-01-19 08:30 | NUR ---
PAIN REASSESSMENT, PT WALKING ABOUT ROOM, RATES PAIN AT 2/10 AND DENIES NEEDS AT THIS TIME.
[2020-01-19] MEDS ORDERED: HYDROCODON-ACE1 EA10 PO (10:32)
[2020-01-19] MEDS ORDERED: IBUPROFEN600 MG PO (10:32)
--- NOTE | 2020-01-19 11:15 | NUR ---
VERBAL AND WRITTEN DISCHARGE ORDERS GONE OVER WITH PT, SHE IS ALSO GIVEN A WRITTEN SCRIPT FOR NORCO 10/325MG AND MOTRIN 600MG AND STATES UNDERSTANDING OF WHEN/HOW TO TAKE EACH. RATES PAIN AT 2/10 AT THIS TIME AND DENIES NEED FOR PAIN MED PRIOR TO DISCHARGE. PT GATHERING HER THINGS AND WILL CALL WHEN READY FOR WHEELCHAIR.
--- NOTE | 2020-01-19 11:30 | NUR ---
PT TAKEN OUT BY WHEELCHAIR WITH WHO IS SECURED IN [employer]. HOME BY PRIVATE CAR WITH FAMILY.
== END 2020-01-19 11:30 | disposition home or self-care (01) | DRG 788 ==
LOC: D.LDO 00:40 → D.LD 02:01
PROVIDERS: ADMIT Obstetrics & Gynecology; ATTEND Obstetrics & Gynecology
PROC: 0DNW0ZZ Release Peritoneum, Open Approach (ICD-10-PCS; 2020-01-17)
PROC: 10D00Z1 Extraction of Products of Conception, Low, Open Approach (ICD-10-PCS; principal; 2020-01-17 02:50)
DX: O99.824 Streptococcus B carrier state complicating childbirth (principal); Z3A.38 38 weeks gestation of pregnancy; Z37.0 Single live birth; O34.211 Maternal care for low transverse scar from previous cesarean delivery; N32.89 Other specified disorders of bladder; N73.6 Female pelvic peritoneal adhesions (postinfective); O99.89 Other specified diseases and conditions complicating pregnancy, childbirth and the puerperium

== ENCOUNTER 2020-01-21 14:11 | Emergency (ER) | payer MEDICAID ==
[~2020-01-21] VITALS: Ht 165.1 cm; Wt 88.6 kg
[~2020-01-21 14:11] MED LIST changes: +HYDROCODON-ACE1 EA10 PO; +PROVENTIL/2.5 MG/3 M INH
[2020-01-21 14:20] VITALS: Ht 165.1 cm; Wt 88.6 kg
[2020-01-21 15:16] LABS: BASOPHILS 0.2 % (0-2); EOSINOPHILS 4.1 % (0-7); HEMOGLOBIN 8.1 g/dL (12-16); IMMATURE GRANULOCYTES 0.6 % (0-5); LYMPHOCYTES 22.5 % (15-50); MCH 23.8 pg (26.0-34.0); MCHC 31.2 g/dL (31.0-37.0); MCV 76.5 fL (80.0-100.0); MEAN PLATELET VOLUME 8.7 fL (7.4-10.4); MONOCYTES 8.4 % (2-11); NEUTROPHILS 64.2 % (40-80); PLATELET COUNT 182 10x3/uL (130-400); RDW 14.8 % (11.5-14.5); WBC 4.7 10x3/uL (4.8-10.8)
[2020-01-21 15:24] LABS: ANION GAP 11.2 mmol/L (8-16); CALCIUM 8.3 mg/dL (8.5-10.1); CARBON DIOXIDE 27.2 mmol/L (21.0-32.0); POTASSIUM - SERUM 3.4 mmol/L (3.5-5.1)
[2020-01-21 15:29] LABS: ALBUMIN 2.4 g/dL (3.4-5.0); BILIRUBIN - TOTAL 0.27 mg/dL (0.2-1.3); PROTEIN - SERUM 6.5 g/dL (6.4-8.2)
[2020-01-21 15:55] LABS: GLUCOSE NEGATIVE (NEGATIVE); KETONE NEGATIVE (NEGATIVE); NITRITE NEGATIVE (NEGATIVE); SPECIFIC GRAVITY 1.015 (1.005-1.020)
[2020-01-21 15:56] LABS: BACTERIA FEW /hpf (NEGATIVE); BILIRUBIN NEGATIVE (NEGATIVE); EPITHELIAL CELLS 0-5 /hpf (0-5); RED CELLS - URINE 0-5 /hpf (0-5); UROBILINOGEN NORMAL (NORMAL)
[2020-01-21] MEDS ORDERED: FERROUS SULFAT325 MG PO (16:51)
[2020-01-21 16:54] VITALS: BP 106/78
== END 2020-01-21 16:55 | disposition home or self-care (01) ==
LOC: D.ER 14:11
PROVIDERS: Family Medicine
DX: O90.89 Other complications of the puerperium, not elsewhere classified (principal); O90.81 Anemia of the puerperium; R60.9 Edema, unspecified; E87.6 Hypokalemia

== ENCOUNTER 2020-03-26 19:22 | Emergency (ER) | payer MEDICAID ==
[~2020-03-26] VITALS: Ht 165.1 cm; Wt 79.5 kg
[2020-03-26 19:30] VITALS: Ht 165.1 cm; Wt 79.5 kg
[2020-03-26 20:38] LABS: BASOPHILS 0.2 % (0-2); EOSINOPHILS 4.7 % (0-7); HEMATOCRIT 35.9 % (36.0-48.0); LYMPHOCYTES 34.6 % (15-50); MCH 26.4 pg (26.0-34.0); MCHC 33.4 g/dL (31.0-37.0); MCV 79.1 fL (80.0-100.0); MEAN PLATELET VOLUME 9.4 fL (7.4-10.4); MONOCYTES 6.7 % (2-11); NEUTROPHILS 53.8 % (40-80); RBC 4.54 10x6/uL (4.00-5.40); RDW 15.7 % (11.5-14.5); WBC 5.5 10x3/uL (4.8-10.8)
[2020-03-26 20:47] LABS: HCG SERUM NEGATIVE (NEGATIVE)
[2020-03-26 20:48] LABS: PLATELET COUNT 230 10x3/uL (130-400)
[2020-03-26 20:52] LABS: APTT 30.5 SECONDS (22.8-39.4); INR 1.07 (0.85-1.17); PROTIME 13.8 SECONDS (11.6-15.0)
[2020-03-26 20:53] LABS: D-DIMER-QUANTITATIVE < 0.27 ug/mLFEU (0.20-0.54)
[2020-03-26 21:02] LABS: BILIRUBIN NEGATIVE (NEGATIVE); GLUCOSE NEGATIVE (NEGATIVE); KETONE NEGATIVE (NEGATIVE); NITRITE NEGATIVE (NEGATIVE); UROBILINOGEN NORMAL (NORMAL)
[2020-03-26 21:02] LABS: ALBUMIN 3.8 g/dL (3.4-5.0); ALKALINE PHOSPHATASE 66 U/L (30-120); ALT (SGPT) 22 U/L (10-68); BILIRUBIN - TOTAL 0.23 mg/dL (0.2-1.3); CALC OSMOLALITY 278 mosm/kg (275-300); CALCIUM 8.6 mg/dL (8.5-10.1); CARBON DIOXIDE 24.6 mmol/L (21.0-32.0); CHLORIDE - SERUM 105 mmol/L (98-107); CKMB 0.7 U/L (0.0-3.6); CREATINE KINASE 92 UL (21-215); CREATININE - SERUM 1.1 mg/dL (0.6-1.3); GLUCOSE 103 mg/dL (74-106); MAGNESIUM - SERUM 1.9 mg/dL (1.8-2.4); PROTEIN - SERUM 7.2 g/dL (6.4-8.2); SODIUM 140 mmol/L (136-145); TROPONIN-I < 0.017 ng/mL (0.000-0.060); UREA NITROGEN 12 mg/dL (7-18); eGFR NON AFRICAN AMERICAN 65 mL/min (90-120)
[2020-03-26 21:03] LABS: WHITE CELLS - URINE 0-5 /hpf (NEGATIVE)
[2020-03-26 21:04] LABS: BACTERIA FEW /hpf (NEGATIVE); EPITHELIAL CELLS RARE /hpf (0-5)
[2020-03-26 21:08] LABS: POTASSIUM - SERUM 2.8 mmol/L (3.5-5.1)
[2020-03-26 21:09] LABS: UDS - AMPHET NEGATIVE QUAL (NEGATIVE); UDS - BARB NEGATIVE QUAL (NEGATIVE); UDS - BENZO NEGATIVE QUAL (NEGATIVE); UDS - COCAINE NEGATIVE QUAL (NEGATIVE); UDS - OPIATE NEGATIVE QUAL (NEGATIVE); UDS - PCP NEGATIVE QUAL (NEGATIVE); UDS - THC NEGATIVE QUAL (NEGATIVE)
[2020-03-26] MEDS ORDERED: PROTONIX40 MG PO (22:37)
[2020-03-26 22:45] VITALS: BP 119/80
== END 2020-03-26 22:45 | disposition home or self-care (01) ==
LOC: D.ER 19:22
PROVIDERS: Family Medicine
DX: R07.9 Chest pain, unspecified (principal); K29.70 Gastritis, unspecified, without bleeding; E87.6 Hypokalemia; R51 Headache

== ENCOUNTER 2020-12-01 00:13 | Emergency (ER) | payer MEDICAID ==
[~2020-12-01] VITALS: Ht 165.1 cm; Wt 86.4 kg
[~2020-12-01 00:13] MED LIST changes: +MUCINEX600 MG PO; +PROMETH-CODEIN 65 ML PO; +PROTONIX40 MG PO
[2020-12-01 00:26] VITALS: BP 112/80; Ht 165.1 cm; Wt 86.4 kg
== END 2020-12-01 01:12 | disposition home or self-care (01) ==
LOC: D.ER 00:13
DX: S60.221A Contusion of right hand, initial encounter (principal); W19.XXXA Unspecified fall, initial encounter; Y93.9 Activity, unspecified; Y92.9 Unspecified place or not applicable

== ENCOUNTER 2020-12-10 20:55 | Emergency (ER) | payer MEDICAID ==
[~2020-12-10] VITALS: Ht 165.1 cm; Wt 81.6 kg
[2020-12-10 20:59] VITALS: Ht 165.1 cm; Wt 81.6 kg
[2020-12-10 22:10] LABS: BASOPHILS 0.1 % (0-2); EOSINOPHILS 0 % (0-7); HEMATOCRIT 37.1 % (36.0-48.0); HEMOGLOBIN 12.7 g/dL (12-16); IMMATURE GRANULOCYTES 0.2 % (0-5); LYMPHOCYTE ABS# 0.93 10x3/uL (1.18-3.74); LYMPHOCYTES 9.3 % (15-50); MCHC 34.2 g/dL (31.0-37.0); MCV 81.9 fL (80.0-100.0); MEAN PLATELET VOLUME 9.9 fL (7.4-10.4); MONOCYTES 10.8 % (2-11); NEUTROPHIL ABS# 7.95 10x3/uL (1.56-6.13); NEUTROPHILS 79.6 % (40-80); RBC 4.53 10x6/uL (4.00-5.40); RDW 12.7 % (11.5-14.5)
[2020-12-10 22:12] LABS: PLATELET COUNT 168 10x3/uL (130-400)
[2020-12-10 22:15] LABS: CALC OSMOLALITY 272 mosm/kg (275-300); CALCIUM 9.2 mg/dL (8.5-10.1); CARBON DIOXIDE 21.2 mmol/L (21.0-32.0); CHLORIDE - SERUM 100 mmol/L (98-107); CREATININE - SERUM 0.9 mg/dL (0.6-1.3); GLUCOSE 86 mg/dL (74-106); POTASSIUM - SERUM 3.8 mmol/L (3.5-5.1); SODIUM 136 mmol/L (136-145); UREA NITROGEN 18 mg/dL (7-18); eGFR NON AFRICAN AMERICAN 81 mL/min (90-120)
[2020-12-10 22:21] LABS: ALBUMIN 3.5 g/dL (3.4-5.0); ALKALINE PHOSPHATASE 79 U/L (30-120); ALT (SGPT) 16 U/L (10-68); BILIRUBIN - TOTAL 0.69 mg/dL (0.2-1.3); PROTEIN - SERUM 8.1 g/dL (6.4-8.2)
[2020-12-10 22:22] LABS: MONO NEGATIVE (NEGATIVE)
[2020-12-11] MEDS ORDERED: AMOXICILLIN500 M1 PO (00:34)
[2020-12-11] MEDS ORDERED: PREDNISONE20 MG PO (00:34)
[2020-12-11 01:00] VITALS: BP 110/75
[2020-12-13 10:12] LABS: EBV - NUCLEAR ANTIGEN AB IGG >600.0 U/mL (0.0-17.9); EBV VIRAL CAPSID AB IGM <36.0 U/mL (0.0-35.9)
== END 2020-12-11 01:00 | disposition home or self-care (01) ==
LOC: D.ER 20:55
PROVIDERS: Student in an Organized Health Care Education/Training Program
DX: J02.9 Acute pharyngitis, unspecified (principal); J36 Peritonsillar abscess